=== PATIENT | female | born 1995 | race Asian ===

== ENCOUNTER 2020-05-12 12:28 | Outpatient (CLI) | payer OTHER ==
[2020-05-12 22:14] LABS: SARS-CoV-2 MS2 Positive; SARS-CoV-2 N Gene Negative; SARS-CoV-2 S Gene Negative; SARS-CoV-2 by NAA Not Detected (NotDetected); SARS-CoV-2 orf1ab Negative
== END 2020-05-12 12:29 | disposition home or self-care (01) ==
LOC: LABBT 12:28
PROVIDERS: ATTEND Advanced Practice Midwife
DX: Z01.812 Encounter for preprocedural laboratory examination (principal); Z20.828 Contact with and (suspected) exposure to other viral communicable diseases
CPT/HCPCS: 87635; U0003

== ENCOUNTER 2020-05-15 19:00 | Inpatient (IN) | payer OTHER, SELFPAY ==
[2020-05-15] MEDS ORDERED: HYDROcodone/Acetaminophen 5/325 mg Tablet PO PRN (20:42)
[2020-05-15] MEDS ORDERED: Lidocaine 1% (PF) 30 ML VIAL SC PRN (20:42)
[2020-05-15] MEDS ORDERED: hydrALAZINE 20 MG/ML VIAL SLOW IVP PRN (20:42)
[2020-05-15] MEDS ORDERED: Butorphanol Tartrate 1 MG/ML VIAL SLOW IVP PRN (20:42)
[2020-05-15] MEDS ORDERED: NS / Oxytocin 40 units/1000ml 1,000 ML IV PRN (20:42)
[2020-05-15] MEDS ORDERED: Ondansetron PF 4 MG/2 ML Vial IVP PRN (20:42)
[2020-05-15] MEDS ORDERED: Ibuprofen 800 MG TAB PO PRN (20:42)
[2020-05-15 20:49] VITALS: BMI 26.4
[2020-05-15] MEDS: Misoprostol 100 MCG TAB VAG SCH (21:35)
[2020-05-15] MEDS: Lactated Ringer's 1,000 ML IV SCH (21:38)
[2020-05-15 21:49] LABS: Mean Corpuscular HGB CONC 33.3 g/dL (32.0-36.0); Mean Corpuscular Hemoglobin 30.4 pg (27.0-31.0); Mean Corpuscular Volume 91.3 fL (78.0-98.0); Mean Platelet Volume 6.4 fL (7.4-10.4); Platelet Count 246 thou/uL (130-400); RBC Distribution Width 12.9 % (11.5-14.5); Red Blood Cell (RBC) Count 3.61 mill/uL (4.20-5.40); White Blood Cell (WBC) Count 10.1 thou/uL (4.8-10.8)
[2020-05-15 22:29] LABS: HBSAg Index 0.17 S/CO (0-0.99); Hep B Surf Ag Non-Reactive S/CO (NonReactive); Syphilis Antibody Nonreactive (Nonreactive); Syphilis Antibody Index 0.04 S/CO (<1.00 Non-Reactive)
[2020-05-16] MEDS: Misoprostol 100 MCG TAB VAG SCH ×3 (01:52→06:59)
[2020-05-16] MEDS ORDERED: NS w/ Oxytocin 10 units 500 ML IV SCH (07:15)
[2020-05-16] MEDS: Lactated Ringer's 1,000 ML IV SCH ×2 (09:06→11:12)
--- NOTE | 2020-05-16 13:50 | PDOC.LDPN ---
Labor & Delivery Progress Note - Subjective Subjective: comfortable, no concerns - Objective Vital signs reviewed and normal: yes General: NAD, resting Uterine fundus: non tender SVE: 5/80/-1 Dilation: 5 Station: -1 FHT: category 2, variability present, absent or minimal variables [place] contractions every: 1-3 min AROM: clear fluid Resuscitative measures: maternal position change Plan: continue plan of care, pitocin for augmentation (pit at 2) -: continue expectant mgmt. Head well engaged on cervical exam. AROM at 13:45. Variable decels after AROM, which resolved.
--- NOTE | 2020-05-16 16:16 | PDOC.LDPN ---
Labor & Delivery Progress Note - Subjective Subjective: painful contractions - Objective Vital signs reviewed and normal: yes General: breathing through contractions SVE: soft, bloody show Dilation: 8 Effacement: 90% Station: 0 FHT: category 2, early decelerations (recurrent), variability present [place] contractions every: 2-3 min IUPC placed: yes Resuscitative measures: amniofusion Plan: continue plan of care, resuscitative measures -: discontinued pitocin due to bradycardia continue expectant mgmt.
[2020-05-16] MEDS ORDERED: Lanolin Ointment 7 GM TUBE TOP PRN (18:56)
[2020-05-16] MEDS ORDERED: hydrALAZINE 20 MG/ML VIAL SLOW IVP PRN (18:56)
[2020-05-16] MEDS ORDERED: Milk Of Magnesia 30 ML UDCUP PO PRN (18:56)
[2020-05-16] MEDS ORDERED: NS / Oxytocin 40 units/1000ml 1,000 ML IV SCH (18:56)
[2020-05-16] MEDS ORDERED: diphenhydrAMINE 25 MG CAP PO PRN (18:56)
[2020-05-16] MEDS ORDERED: Benzocaine-Menthol 82.5 ML CAN TOP PRN (18:56)
[2020-05-16] MEDS ORDERED: Preparation H Ointment 28 GM TUBE PR PRN (18:56)
[2020-05-16] MEDS ORDERED: Bisacodyl 10 MG SUPP PR PRN (18:56)
[2020-05-16] MEDS ORDERED: Ondansetron PF 4 MG/2 ML Vial IVP PRN (18:56)
--- NOTE | 2020-05-16 20:43 | OP ---
DATE OF PROCEDURE: 05/16/2020 DELIVERING PHYSICIAN: Daily Guerra, PGY-2 ATTENDING PHYSICIAN: Dr. Rao, OB Hospitalist PROCEDURE PERFORMED: Spontaneous vaginal delivery. PREOPERATIVE DIAGNOSES: 1. Postdates intrauterine . 2. Postdates induction. POSTOPERATIVE DIAGNOSES: 1. Postdates intrauterine , delivered. 2. First degree perineal laceration, repaired. ANESTHESIA: Lidocaine used for repair. QUANTITATIVE BLOOD LOSS: 146 mL. SPECIMENS: Cord blood for blood type. FINDINGS: Placenta intact with three-vessel cord noted; discarded. Viable female with Apgars of 8 and 9 at 1 and 5 minutes of life respectively. INDICATIONS: A 25-year-old female, G1, P0, at 41.3 wga, was admitted to Labor and Delivery for postdates Cytotec induction. DESCRIPTION OF PROCEDURE: This 25-year-old, G1, P0, at 41.3 wga, delivered a viable female at 1653 hours on 05/16/2020. After an uneventful antepartum course, the was delivered in the occipitoanterior position over an intact perineum. The head was delivered. Nuchal cord x1 was noted; and the anterior shoulder and remainder of body were delivered through the nuchal cord, which was then reduced. The infant cried immediately at the perineum. The infant was placed on mother's abdomen and stimulated. About 60 seconds of delayed cord clamping, the cord was clamped and cut. Cord blood was collected. Placenta delivered intact and spontaneously in the [place] presentation with a 3 vessel cord noted. Fundal massage was performed; fundus was firm. Inspection of the perineum and vagina revealed a first-degree perineal laceration, which was repaired in the usual fashion with 2-0 chromic suture. A small bleeding area on the right labia minora was also noted and repaired with 2-0 chromic with a [id number] stitch. Approximately 18 mL of 1% Lidocaine were injected at these sites prior to suturing. The repaired lacerations were noted to be hemostatic. The patient tolerated the delivery well. All counts were correct. Infant went to patient for [id number] in good condition. The patient went to for routine care and recovery. Job ID: [id number] [facility]
[2020-05-16] MEDS: Ibuprofen 800 MG TAB PO SCH (21:06)
[2020-05-16] MEDS: Docusate Calcium (SURFAK) 240 MG CAP PO SCH (21:07)
[2020-05-17] MEDS: Ibuprofen 800 MG TAB PO SCH ×2 (05:07→13:43)
--- NOTE | 2020-05-17 06:48 | PDOC.PP ---
Post Progress Note Post Day #: 0-1 PO intake tolerated: yes Flatus: yes Ambulation: yes Vital Signs (12 hours) Temp Pulse Resp BP 05/17/20 05:06 98.3 F 62 16 116/67 05/16/20 22:35 98.1 F 94 16 101/59 L 05/16/20 21:10 98.0 F 99 16 110/71 05/16/20 19:55 98.1 F 91 16 109/56 L Weight Weight 140 lb - Physical Examination General: NAD Cardiovascular: no m/r/g, RRR Respiratory: clear to auscultation bilaterally, non-labored breathing Abdominal: + bowel sounds, lochia, no distention Extremities: negative homans (B) Skin: no rash Neurological: no gross focal deficits Psychiatric: A&Ox3, normal affect Result Diagrams: 05/15/20 21:12 Additional Labs: Post Labs Hep Bs Antigen Non-Reactive S/CO (NonReactive) 05/15/20 21:12 Blood Type O POSITIVE 05/15/20 23:01 - Assessment/Plan G1 ppd #1. baby under bili. routine care, home tomorrow
[2020-05-17 06:49] LABS: Mean Corpuscular HGB CONC 33.4 g/dL (32.0-36.0); Mean Corpuscular Hemoglobin 30.4 pg (27.0-31.0); Mean Corpuscular Volume 90.8 fL (78.0-98.0); Mean Platelet Volume 6.3 fL (7.4-10.4); Platelet Count 197 thou/uL (130-400); RBC Distribution Width 12.8 % (11.5-14.5); Red Blood Cell (RBC) Count 3.29 mill/uL (4.20-5.40); White Blood Cell (WBC) Count 13.3 thou/uL (4.8-10.8)
[2020-05-17] MEDS ORDERED: Adacel (T-DAP) 0.5 ML SYRINGE IM ONE (09:00)
[2020-05-17] MEDS: Ferrous Sulfate 325 MG TAB PO SCH ×2 (09:03→17:33)
[2020-05-17] MEDS: Prenatal Vitamin 1 TAB PO SCH (09:07)
[2020-05-17] MEDS: Docusate Calcium (SURFAK) 240 MG CAP PO SCH (09:07)
[2020-05-18] MEDS: Ibuprofen 800 MG TAB PO SCH ×3 (06:36→14:26)
[2020-05-18] MEDS: Docusate Calcium (SURFAK) 240 MG CAP PO SCH ×2 (06:36→09:03)
[2020-05-18 08:43] VITALS: BP 102/55; TEMP 98.2
[2020-05-18] MEDS: Ferrous Sulfate 325 MG TAB PO SCH (09:02)
[2020-05-18] MEDS: Prenatal Vitamin 1 TAB PO SCH (09:03)
== END 2020-05-18 14:41 | disposition home or self-care (01) | DRG 807 ==
LOC: L&D 20:00 → 3SW 05-16 20:35
PROVIDERS: ADMIT Obstetrics & Gynecology; ATTEND Obstetrics & Gynecology
PROC: 10E0XZZ Delivery of Products of Conception, External Approach (ICD-10-PCS; principal; 2020-05-16)
PROC: 3E0E7GC Introduction of Other Therapeutic Substance into Products of Conception, Via Natural or Artificial Opening (ICD-10-PCS; 2020-05-16)
PROC: 10907ZC Drainage of Amniotic Fluid, Therapeutic from Products of Conception, Via Natural or Artificial Opening (ICD-10-PCS; 2020-05-16)
PROC: 3E033VJ Introduction of Other Hormone into Peripheral Vein, Percutaneous Approach (ICD-10-PCS; 2020-05-16)
PROC: 3E0P7VZ Introduction of Hormone into Female Reproductive, Via Natural or Artificial Opening (ICD-10-PCS; 2020-05-16)
PROC: 0HQ9XZZ Repair Perineum Skin, External Approach (ICD-10-PCS; 2020-05-16)
DX: O48.0 Post-term pregnancy (principal); Z37.0 Single live birth; Z20.828 Contact with and (suspected) exposure to other viral communicable diseases; O76 Abnormality in fetal heart rate and rhythm complicating labor and delivery; O69.81X0 Labor and delivery complicated by cord around neck, without compression, not applicable or unspecified; O70.0 First degree perineal laceration during delivery; Z3A.41 41 weeks gestation of pregnancy
CPT/HCPCS: 36415; 85027; 86780; 86850; 86900; 86901; 87340; J0595; J2001; J2590

== ENCOUNTER 2023-08-20 11:14 | Outpatient (CLI) | payer BC | END 2023-08-20 11:15 | disposition home or self-care (01) | LOC: BICULT 11:14 | PROVIDERS: ATTEND Student in an Organized Health Care Education/Training Program | DX: N63.13 Unspecified lump in the right breast, lower outer quadrant (principal) ==